=== PATIENT | male | born 1990 | race African-American/Black ===

== ENCOUNTER 2023-05-10 16:49 | Emergency (ER) | payer BC, SELFPAY ==
[2023-05-10] MEDS ORDERED: HYDROcodone/Acetaminophen 5/325 mg Tablet ONE (17:24)
[2023-05-10] MEDS ORDERED: Lidocaine 1% (PF) 30 ML VIAL ONE ×2 (17:26→17:27)
[2023-05-10] MEDS ORDERED: Cephalexin 250 MG CAP ONE (19:07)
[2023-05-10] MEDS ORDERED: Bacitracin 1 PK ONE (19:23)
== END 2023-05-10 19:27 | disposition home or self-care (01) ==
LOC: CSHERS 16:49
DX: S61.431A Puncture wound without foreign body of right hand, initial encounter (principal); E11.9 Type 2 diabetes mellitus without complications; W34.09XA Accidental discharge from other specified firearms, initial encounter
CPT/HCPCS: 12002; J2001

== ENCOUNTER 2023-08-07 08:23 | Emergency (ER) | payer SELFPAY ==
[2023-08-07] MEDS ORDERED: Morphine 4 MG/ML VIAL ONE (09:02)
[2023-08-07] MEDS ORDERED: Ondansetron PF 4 MG/2 ML Vial ONE (09:03)
[2023-08-07 09:08] LABS: #Basophils 0.1 10x3/uL (0.0-0.2); #Eosinphils 0.2 10x3/uL (0.0-0.5); #Monocytes 0.7 10x3/uL (0.0-1.1); #Neutrophils 7.7 10x3/uL (1.5-8.4); %Basophils 0.6 % (0.0-2.0); %Eosinophils 1.6 % (0.0-6.0); %Lymphocytes 20.7 % (18.0-47.0); %Monocytes 6.2 % (0.0-10.0); %Neutrophils 70.6 % (40.0-75.0); Hematocrit 44.6 % (38.8-50.0); Hemoglobin 15.4 g/dL (13.5-17.5); Mean Corpuscular HGB CONC 34.5 g/dL (32.0-36.0); Mean Corpuscular Hemoglobin 28.4 pg (27.0-33.0); Mean Corpuscular Volume 82.3 fl (81.2-95.1); Mean Platelet Volume 9.9 fl (7.4-10.4); Platelet Count 295 10x3/uL (150-450); RBC Distribution Width 12.1 % (11.5-14.5); Red Blood Cell (RBC) Count 5.42 10x6/uL (4.32-5.72); White Blood Cell (WBC) Count 10.9 10x3/uL (3.5-10.5)
[2023-08-07 09:18] LABS: ALT (SGPT) 52 U/L (8-55); AST (SGOT) 23 U/L (5-34); Albumin 4.3 g/dL (3.5-5.0); Alkaline Phosphatase 50 U/L (40-110); Anion Gap 16 mmol/L (10-20); BUN (Urea Nitrogen) 8 mg/dL (8.9-20.6); Bilirubin, Total 0.9 mg/dL (0.2-1.2); Calc. Creatinine Clearance 0 mL/min (70-130); Calcium 9.7 mg/dL (7.8-10.44); Carbon Dioxide 22 mmol/L (22-29); Chloride 101 mmol/L (98-107); Estimated GFR 92; Globulin 3.6 g/dL (2.4-3.5); Glucose 329 mg/dL (70-105); Potassium 3.9 mmol/L (3.5-5.1); Protein, Total 7.9 g/dL (6.0-8.3); Sodium 135 mmol/L (136-145)
[2023-08-07] MEDS ORDERED: Cefepime 2 GM VIAL ONE (10:37)
== END 2023-08-07 12:20 | disposition home or self-care (01) ==
LOC: CSHERS 08:23
DX: S91.331A Puncture wound without foreign body, right foot, initial encounter (principal); L03.115 Cellulitis of right lower limb; E11.65 Type 2 diabetes mellitus with hyperglycemia; I10 Essential (primary) hypertension; F17.210 Nicotine dependence, cigarettes, uncomplicated; X58.XXXA Exposure to other specified factors, initial encounter
CPT/HCPCS: 36415; 80053; 83605; 85025; 86140; 96361; 96365; 96375; J0692; J2270; J2405